=== PATIENT | female | born 1990 | race Caucasian/White ===

== ENCOUNTER 2017-12-14 16:30 | Emergency (ER) | payer BC ==
--- NOTE | 2017-12-14 17:08 | EDM.PDOC ---
ED HPI GENERAL MEDICAL PROBLEM - General Chief Complaint: Upper Extremity Injury/Pain Stated Complaint: FELL AND HURT SHOULDER Time Seen by Provider: 12/14/17 16:35 Source of Information: Reports: Patient History Limitations: Reports: No Limitations - History of Present Illness INITIAL COMMENTS - FREE TEXT/NARRATIVE: HISTORY AND PHYSICAL: History of present illness: Patient is a 27-year-old female who presents to the emergency room with complaints of left humerus pain. She states last night she had fallen at approximately 1 PM onto her left shoulder. Since that time she has had pain to the left mid bicep/tricep area. Denies hitting her head or any loss of consciousness. No previous injury or trauma of the affected extremity. She does have full range of motion although the movement does cause pain to the musculature. Review of systems: As per history of present illness and below otherwise all systems reviewed and negative. Past medical history: As per history of present illness and as reviewed below otherwise noncontributory. Surgical history: As per history of present illness and as reviewed below otherwise noncontributory. Social history: No reported history of drug or alcohol abuse. Family history: As per history of present illness and as reviewed below otherwise noncontributory. Physical exam: General: Well-developed and well-nourished 27-year-old female. Alert and oriented. Nontoxic appearing and in no acute distress. HEENT: Atraumatic, normocephalic, pupils equal and reactive bilaterally, negative for conjunctival pallor or scleral icterus, mucous membranes moist, throat clear, neck supple, nontender, trachea midline. No drooling or trismus noted. No meningeal signs Lungs: Clear to auscultation, breath sounds equal bilaterally, chest nontender. Heart: S1S2, regular rate and rhythm without overt murmur Abdomen: Soft, nondistended, nontender. Negative for masses or hepatosplenomegaly. Negative for costovertebral tenderness. Pelvis: Stable nontender. Genitourinary: Deferred. Rectal: Deferred. Skin: Intact, warm, dry. No lesions or rashes noted. Extremities: Full range of motion to all extremities. Does have pain to the left mid humerous with range of motion. Strong radial pulses bilaterally. negative for cords or calf pain. Neurovascular unremarkable. Neuro: Awake, alert, oriented. Cranial nerves II through XII unremarkable. Cerebellum unremarkable. Motor and sensory unremarkable throughout. Exam nonfocal. Notes: X-ray shows no acute fracture or dislocation. We did discuss the limitations of x-ray and if she continues to have pain she may need to follow-up with the orthopedic provider for further imaging/management/treatment. We'll give her a sling. Prescription for tramadol, #10, no refill. Patient is agreeable to plan of care. Denies any further questions or concerns at this time. Diagnostics: X-ray Therapeutics: Sling Impression: Left shoulder injury Plan: 1. Rest, ice, elevate the affected extremity. Use the sling for the next 2-3 days. 2. Tylenol and/or ibuprofen as needed for pain management. 3. Follow-up with your primary care provider or orthopedic provider in the next couple days for further evaluation and management. Return to the ED as needed and as discussed. Definitive disposition and diagnosis as appropriate pending reevaluation and review of above. Duration: Hour(s): Location: Reports: Upper Extremity, Left Left Shoulder Pain Score (Numeric/FACES): 8 - Related Data Allergies Allergy/AdvReac Type Severity Reaction Status Date / Time No Known Allergies Allergy Verified 12/14/17 16:37 Home Meds: Home Meds . [No Known Home Meds] 12/14/17 [History] Past Medical History - Past Health History Medical/Surgical History: Denies Medical/Surgical History Social & Family History - Family History Family Medical History: Noncontributory - Tobacco Use Smoking Status *Q: Never Smoker - Recreational Drug Use Recreational Drug Use: No Review of Systems - Review of Systems Review Of Systems: ROS reveals no pertinent complaints other than HPI. ED EXAM, GENERAL - Physical Exam Exam: See Below (See dictation) Course - Vital Signs Last Recorded V/S: Last Vital Signs Temp 97.5 F 12/14/17 17:34 Pulse 87 12/14/17 17:34 Resp 14 12/14/17 17:34 BP 140/98 H 12/14/17 17:34 Pulse Ox 98 12/14/17 17:34 - Orders/Labs/Meds Orders: Active Orders 24 hr Category Date Time Status Shoulder Comp Lt [CR] Stat Exams 12/14/17 16:44 Taken DME for Discharge [COMM] Stat Oth 12/14/17 17:45 Ordered Departure - Departure Time of Disposition: 17:53 Disposition: Home, Self-Care 01 Clinical Impression: Shoulder injury Qualifiers: Encounter type: initial encounter Laterality: left Qualified Code(s): S49.92XA - Unspecified injury of left shoulder and upper arm, initial encounter - Discharge Information Referrals: PCP,None [Primary Care Provider] - Forms: ED Department Discharge Additional Instructions: The following information is given to patients seen in the emergency department who are being discharged to home. This information is to outline your options for follow-up care. We provide all patients seen in our emergency department with a follow-up referral. The need for follow-up, as well as the timing and circumstances, are variable depending upon the specifics of your emergency department visit. If you don't have a primary care physician on staff, we will provide you with a referral. We always advise you to contact your personal physician following an emergency department visit to inform them of the circumstance of the visit and for follow-up with them and/or the need for any referrals to a consulting specialist. The emergency department will also refer you to a specialist when appropriate. This referral assures that you have the opportunity for follow-up care with a specialist. All of these measure are taken in an effort to provide you with optimal care, which includes your follow-up. Under all circumstances we always encourage you to contact your private physician who remains a resource for coordinating your care. When calling for follow-up care, please make the office aware that this follow-up is from your recent emergency room visit. If for any reason you are refused follow-up, please contact the [facility] Emergency Department at and asked to speak to the emergency department charge nurse. [facility] [address] [place] [id number] [facility] [address] [place] [address], [address] [place] [address] 1. Rest, ice, elevate the affected extremity. Use the sling for the next 2-3 days. 2. Tylenol and/or ibuprofen as needed for pain management. 3. Follow-up with your primary care provider or orthopedic provider in the next couple days for further evaluation and management. Return to the ED as needed and as discussed. - My Orders Last 24 Hours: My Active Orders 12/14/17 16:44 Shoulder Comp Lt [CR] Stat 12/14/17 17:45 DME for Discharge [COMM] Stat - Assessment/Plan Last 24 Hours: My Active Orders 12/14/17 16:44 Shoulder Comp Lt [CR] Stat 12/14/17 17:45 DME for Discharge [COMM] Stat
--- NOTE | 2017-12-16 20:16 | CR ---
EXAM DATE: 12/14/17 PATIENT'S AGE: 27 Patient: CHRIS MAO Facility: [place], [place] Site . Site : 1990 Study: XRay Shoulder Left [id number] 5:10:37 PM Ordering Physician: Doctor Kidd Final Report: INDICATION: Left shoulder injury. Fell. TECHNIQUE: Three views of the left shoulder. COMPARISON: None. FINDINGS: No fracture or dislocation. IMPRESSION: Negative left shoulder. Dictated by Wilfrido Allred MD @ Dec 14 2017 5:47PM (Electronic Signature) Report Signed by Proxy. MARY
== END 2017-12-14 18:12 | disposition home or self-care (01) ==
LOC: MW.ED 16:30
DX: S49.92XA Unspecified injury of left shoulder and upper arm, initial encounter (principal); W19.XXXA Unspecified fall, initial encounter
CPT/HCPCS: 73030-26-LT; 73030-LT; 99283